=== PATIENT | male | born 1990 | race Caucasian/White ===

== ENCOUNTER 2018-09-22 08:26 | Emergency (ER) | payer SELFPAY ==
[~2018-09-22] VITALS: Ht 177.8 cm; Wt 93.0 kg
[2018-09-22 08:32] VITALS: Ht 177.8 cm; Wt 93.0 kg
[2018-09-22 12:24] VITALS: BP 139/97
== END 2018-09-22 12:24 | disposition home or self-care (01) ==
LOC: ED 08:26
DX: S62.311A Displaced fracture of base of second metacarpal bone, left hand, initial encounter for closed fracture (principal); S20.219A Contusion of unspecified front wall of thorax, initial encounter; S06.0X9A Concussion with loss of consciousness of unspecified duration, initial encounter; Z88.1 Allergy status to other antibiotic agents; V49.9XXA Car occupant (driver) (passenger) injured in unspecified traffic accident, initial encounter; Y93.I9 Activity, other involving external motion; Y92.413 State road as the place of occurrence of the external cause; Y99.8 Other external cause status
CPT/HCPCS: J2270; Q0092